=== PATIENT | male | born 1965 ===

== ENCOUNTER → 2021-11-03 | Outpatient (CLI) | payer OTHER | END | disposition home or self-care (01) | LOC: SONOGRAMA 09:29 | PROVIDERS: ATTEND Pathology Anatomic Pathology | DX: E07.9 Disorder of thyroid, unspecified (principal); E04.8 Other specified nontoxic goiter ==

== ENCOUNTER 2022-04-16 09:38 | Outpatient (CLI) | payer OTHER | END 2022-04-16 09:42 | disposition home or self-care (01) | LOC: SONOGRAMA 09:38 | PROVIDERS: ATTEND Pathology Anatomic Pathology & Clinical Pathology | DX: D34 Benign neoplasm of thyroid gland (principal); E06.3 Autoimmune thyroiditis; E04.8 Other specified nontoxic goiter ==